=== PATIENT | female | born 2000 | race Caucasian/White ===

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

== ENCOUNTER → 2018-01-11 | Outpatient (CLI) | payer OTHER | LOC: ULTRA 09:11 | DX: R10.31 Right lower quadrant pain (principal); R10.2 Pelvic and perineal pain ==